=== PATIENT | male | born 1960 | race Caucasian/White ===

== ENCOUNTER 2019-12-13 09:36 | Emergency (ER) | payer SELFPAY ==
[2019-12-13] MEDS ORDERED: Fluorescein 1 MG Ophth Strip EYELF ONE (10:01)
--- NOTE | 2019-12-13 10:24 | EDM.PDOC ---
ED HPI GENERAL MEDICAL PROBLEM - General Chief Complaint: Eye Problems Stated Complaint: EYE INJURY Time Seen by Provider: 12/13/19 09:48 Source of Information: Reports: Patient History Limitations: Reports: No Limitations - History of Present Illness INITIAL COMMENTS - FREE TEXT/NARRATIVE: The patient presents with left eye pain. His cat scratched him in the left eye. He has some blurry vision and lots of pain. Onset: Sudden Duration: Day(s): (Yesterday) Location: Reports: Other (Left eye) Quality: Reports: Sharp Severity: Moderate Improves with: Reports: None Worsens with: Reports: None Associated Symptoms: Reports: No Other Symptoms Left Eye Pain Score (Numeric/FACES): 9 - Related Data Allergies Allergy/AdvReac Type Severity Reaction Status Date / Time venom-honey bee Allergy Swelling Verified 12/13/19 09:48 [bee venom (honey bee)] Home Meds: Home Meds Ciprofloxacin [Ciprofloxacin 0.3% Ophth Soln] 1 drop EYERT Q4HR #1 bottle [Rx] Ibuprofen 200 mg PO Q4H PRN 12/13/19 [History] Past Medical History Genitourinary History: Reports: Renal Calculus Musculoskeletal History: Reports: Back Pain, Chronic Neurological History: Reports: Other (See Below) Other Neuro History: 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 - Infectious Disease History Infectious Disease History: Reports: Chicken Pox, Measles, Mumps - Past Surgical History HEENT Surgical History: Reports: Tonsillectomy Male Surgical History: Reports: Kidney Stone Extraction Social & Family History - Family History Family Medical History: Noncontributory - Tobacco Use Smoking Status *Q: Current Every Day Smoker Years of Tobacco use: 40 Packs/Tins Daily: 1 - Caffeine Use Caffeine Use: Reports: Energy Drinks - Recreational Drug Use Recreational Drug Use: No ED ROS GENERAL - Review of Systems Review Of Systems: See Below Constitutional: Reports: No Symptoms HEENT: Reports: Eye Pain (Left) Respiratory: Reports: No Symptoms Cardiovascular: Reports: No Symptoms Endocrine: Reports: No Symptoms GI/Abdominal: Reports: No Symptoms ED EXAM GENERAL W FULL EYE - Physical Exam Exam: See Below Exam Limited By: No Limitations General Appearance: Alert, No Apparent Distress Eye Exam: Bilateral Eye: EOMI, PERRL Visual Acuity (R) 20/: 20 Visual Acuity (L) 20/: 20 Eyelids: Bilateral: Normal Appearance Conjunctiva & Sclera: Left: Conjunctival Edema Cornea Exam: Left: Corneal Abrasion, Examined with Flourescein Extraocular Movements: Bilateral: Intact Course - Vital Signs Last Recorded V/S: Last Vital Signs Temp 98.5 F 12/13/19 09:46 Pulse 69 12/13/19 09:46 Resp 19 12/13/19 09:46 BP 147/81 H 12/13/19 09:46 Pulse Ox 99 12/13/19 09:46 - Orders/Labs/Meds Meds: Medications Discontinued Medications Generic Name Dose Route Start Last Admin Trade Name Freq PRN Reason Stop Dose Admin Fluorescein Sodium 1 mg 12/13/19 10:01 Ful-Alis EYELF 12/13/19 10:02 ONETIME ONE Departure - Departure Time of Disposition: 10:25 Disposition: Home, Self-Care 01 Condition: Good Clinical Impression: Corneal abrasion Qualifiers: Encounter type: initial encounter Laterality: left Qualified Code(s): S05.02XA - Injury of conjunctiva and corneal abrasion without foreign body, left eye, initial encounter - Discharge Information *PRESCRIPTION DRUG MONITORING PROGRAM REVIEWED*: Not Applicable *COPY OF PRESCRIPTION DRUG MONITORING REPORT IN PATIENT SONI: Not Applicable Prescriptions: Ciprofloxacin [Ciprofloxacin 0.3% Ophth Soln] 1 drop EYERT Q4HR #1 bottle Referrals: PCP,None [Primary Care Provider] - Additional Instructions: Use the cipro 1 drop in the left eye every 4 hours while awake for 1 week. Take tylenol or motrin for pain. Follow up with an meters superintendent if you are not feeling better in 3 days. Sepsis Event Note - Evaluation Sepsis Screening Result: No Definite Risk - Focused Exam Vital Signs: Vital Signs Temp Pulse Resp BP Pulse Ox 12/13/19 09:46 98.5 F 69 19 147/81 H 99 Date Exam was Performed: 12/13/19 Time Exam was Performed: 10:19
== END 2019-12-13 10:35 | disposition home or self-care (01) ==
LOC: JD.ED 09:36
DX: S05.02XA Injury of conjunctiva and corneal abrasion without foreign body, left eye, initial encounter (principal); F17.210 Nicotine dependence, cigarettes, uncomplicated; Z91.030 Bee allergy status; W55.03XA Scratched by cat, initial encounter
CPT/HCPCS: 99283

== ENCOUNTER 2023-05-22 10:37 | Emergency (ER) | payer MEDICAID ==
[2023-05-22] MEDS ORDERED: Sodium Chloride 0.9% 10 ML Syringe FLUSH PRN (10:59)
[2023-05-22] MEDS ORDERED: Aspirin 81 MG Tab.Chew PO ONE (10:59)
[2023-05-22 11:18] LABS: BASOPHILS PERCENT AUTO 1.2 % (0.1-1.2); EOSINOPHILS PERCENT AUTO 5.7 (0.8-7.0); HEMATOCRIT 45.9 % (40.1-51.0); HEMOGLOBIN 15.5 gm/dl (13.7-17.5); IMMATURE GRAN PERCENT AUTO 0.1 % (<=1.0); LYMPHOCYTES ABSOLUTE AUTO 2.05 K/mm3 (1.32-3.57); LYMPHOCYTES PERCENT AUTO 29.9 % (21.8-53.1); MEAN CORPUSCULAR HEMOGLOBIN 32.6 pg (25.7-32.2); MEAN CORPUSCULAR HGB CONC 33.8 g/dl (32.2-35.5); MEAN CORPUSCULAR VOLUME 96.4 fl (79.0-92.2); MONOCYTES ABSOLUTE AUTO 0.72 K/mm3 (0.30-0.82); MONOCYTES PERCENT AUTO 10.5 % (5.3-12.2); NEUTROPHILS PERCENT AUTO 52.6 % (34.0-67.9); PLATELET COUNT,PLT 243 K/mm3 (163-337); RED BLOOD CELL COUNT 4.76 M/mm3 (4.63-6.08); WHITE BLOOD CELL COUNT,WBC 6.85 K/mm3 (4.23-9.07)
[2023-05-22 11:19] LABS: BASOPHILS ABSOLUTE AUTO 0.08 K/mm3 (0.01-0.08); EOSINOPHILS ABSOLUTE AUTO 0.39 K/mm3 (0.04-0.54); IMMATURE GRAN ABSOLUTE AUTO 0.01 K/mm3 (0.00-0.10)
[2023-05-22 11:37] LABS: INR 0.96; PROTHROMBIN TIME 10.3 SECONDS (9.7-12.0)
[2023-05-22 11:45] LABS: A/G RATIO 1.4 (1-2); ALANINE AMINOTRANSFERASE,ALT 26 U/L (16-63); ALBUMIN 4.1 g/dl (3.4-5.0); ALKALINE PHOSPHATASE 62 U/L (46-116); ANION GAP 12.5 (5-15); ASPARTATE AMNIOTRANSFERASE,AST 20 U/L (15-37); BILIRUBIN TOTAL 0.3 mg/dL (0.2-1.0); BLOOD UREA NITROGEN,BUN 10 mg/dL (7-18); BUN/CREATININE RATIO 12.5 (14-18); CALCIUM 8.6 mg/dL (8.5-10.1); CARBON DIOXIDE,CO2 28 mEq/L (21-32); CHLORIDE,CL 105 mEq/L (98-107); CREATININE 0.8 mg/dL (0.7-1.3); EST CRCL DRUG DOSING (CG) 83.68 mL/min; ESTIMATED GFR 99 mL/min (>60); GLUCOSE RANDOM 114 mg/dL (70-99); MAGNESIUM 1.8 mg/dL (1.8-2.4); POTASSIUM,K 3.5 mEq/L (3.5-5.1); PROTEIN TOTAL,TP 7.1 g/dl (6.4-8.2); SODIUM,NA 142 mEq/L (136-145)
[2023-05-22 11:48] LABS: TROPONIN I HIGH SENSITIVITY < 4 pg/mL (<=76)
== END 2023-05-22 13:10 | disposition home or self-care (01) ==
LOC: JD.ED 10:37
DX: R07.89 Other chest pain (principal); F17.210 Nicotine dependence, cigarettes, uncomplicated; Z91.030 Bee allergy status
CPT/HCPCS: 36415; 71045; 80053; 83735; 83880; 84484; 85025; 85610; 93005; 99285; A9270; J3490; 93010; 99283